=== PATIENT | female | born 1990 | race Caucasian/White ===

== ENCOUNTER 2017-08-10 03:56 | Inpatient (IN) | payer BC ==
[2017-08-10] MEDS ORDERED: Sodium Chloride 0.9% 10 ML Syringe FLUSH PRN (05:30)
[2017-08-10] MEDS ORDERED: Oxytocin/Lactated Ringers 10 UNIT/1,000 ML BAG IV SCH ×2 (05:30)
[2017-08-10] MEDS ORDERED: Nalbuphine 20 MG/1 ML Amp IVPUSH PRN (05:30)
[2017-08-10] MEDS ORDERED: Ondansetron 4 MG/2 ML SDV IVPUSH PRN ×2 (05:30→09:24)
--- NOTE | 2017-08-10 05:34 | PCM.LDHP ---
L&D History of Present Illness - General Date of Service: 08/10/17 Admit Problem/Dx: Patient Status Order with Admit Dx/Problem 08/10/17 05:31 Patient Status [ADT] Routine Admission Diagnosis/Problem Admission Diagnosis/Problem Elective induction of labor planned Source of Information: Patient History Limitations: Reports: No Limitations - History of Present Illness Introduction:: Patient is a 27 y/o at 40 4/7 wks who presents for IOL for dates. Doing well. Has had some slight tightening of her abdomen, but no overt contractions. 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: : 1 Para: 0 LMP (Approximate): - Past Surgical History HEENT Surgical History: Reports: Oral Surgery GI Surgical History: Reports: Bariatric Procedure Female Surgical History: Reports: D&C Musculoskeletal Surgical History: Reports: Other (See Below) (Plantar fascia release) Social & Family History - Tobacco Use Smoking Status *Q: Former Smoker Years of Tobacco use: 12 - Alcohol Use Alcohol Use History: No Days Per Week of Alcohol Use: 1 Number of Drinks Per Day: 1 Total Drinks Per Week: 1 - Recreational Drug Use Recreational Drug Use: No Drug Use in Last 12 Months: No H&P Review of Systems - Review of Systems: Review Of Systems: See Below General: Reports: No Symptoms Pulmonary: Reports: No Symptoms Cardiovascular: Reports: No Symptoms Gastrointestinal: Reports: No Symptoms Genitourinary: Reports: No Symptoms Musculoskeletal: Reports: No Symptoms L&D Exam - Exam Exam: See Below - OB Specific Contraction Intensity: Irritability Movement: Active Heart Tones: Present Heart Tones per Min: 140 Heart Rate (FHR) Variability: Moderate (6-25 bmp) Presentation: Vertex - Oseguera Score Oseguera Score Cervix Position: Posterior Oseguera Score Consistency: Soft Oseguera Score Effacement: >80% Oseguera Score Dilation: 1-2 cm Oseguera Score Infant's Station: -1 ,0 Oseguera Score Total: 8 - Exam General: Alert, Oriented, Cooperative Lungs: Clear to Auscultation, Normal Respiratory Effort Cardiovascular: Regular Rate, Regular Rhythm GI/Abdominal Exam: Soft, Non-Tender Genitourinary: Normal external exam Back Exam: Normal Inspection Extremities: Normal Inspection - Patient Data Result Diagrams: 08/10/17 06:35 - Problem List (1) 40 weeks gestation of SNOMED Code(s): 95384213 ICD Code: Z3A.40 - 40 WEEKS GESTATION OF Status: Acute Current Visit: Yes (2) Elective induction of labor planned SNOMED Code(s): 317181759 ICD Code: [id number] - Status: Acute Current Visit: Yes Problem List Initiated/Reviewed/Updated: Yes Orders Last 24hrs: Active Orders 24 hr Category Date Time Status Patient Status [ADT] Routine ADT 08/10/17 05:31 Ordered Communication Order [RC] ASDIRECTED Care 08/10/17 05:30 Ordered Communication Order [RC] ASDIRECTED Care 08/10/17 05:30 Ordered Communication Order [RC] ASDIRECTED Care 08/10/17 05:30 Ordered Heart Tones [RC] ASDIRECTED Care 08/10/17 05:31 Ordered Notify Provider [RC] ASDIRECTED Care 08/10/17 05:30 Ordered Notify Provider [RC] PRN Care 08/10/17 05:30 Ordered Peripheral IV Care [RC] . DIRECTED Care 08/10/17 05:31 Ordered Up ad Nitza [RC] ASDIRECTED Care 08/10/17 05:31 Ordered Vaginal Exam [RC] ASDIRECTED Care 08/10/17 05:30 Ordered Vital Signs [RC] ASDIRECTED Care 08/10/17 05:30 Ordered Regular Diet [DIET] Diet 08/10/17 Breakfast Ordered CBC W/O DIFF,HEMOGRAM [HEME] Routine Lab 08/10/17 05:30 Ordered TYPE AND SCREEN [BBK] Routine Lab 08/10/17 05:30 Ordered Lactated Ringers [Ringers, Lactated] 1,000 ml Med 08/10/17 05:30 Ordered IV ASDIRECTED Nalbuphine [Nubain] Med 08/10/17 05:30 Ordered 10 mg IVPUSH Q2H PRN Ondansetron [Zofran] Med 08/10/17 05:30 Ordered 4 mg IVPUSH Q4H PRN Oxytocin/Lactated Ringers [Pitocin in LR 10 Units/1,000 Med 08/10/17 05:30 Ordered ML] 10 unit in 1,000 ml IV .CONTINUOUS Oxytocin/Lactated Ringers [Pitocin in LR 10 Units/1,000 Med 08/10/17 05:30 Ordered ML] 10 unit in 1,000 ml IV TITRATE Sodium Chloride 0.9% [Saline Flush] Med 08/10/17 05:30 Ordered 10 ml FLUSH ASDIRECTED PRN Electronic Heart Tones Ext w TOCO [WOMSER] Ot 08/10/17 05:30 Ordered Routine Electronic Heart Tones Internal [WOMSER] Per Unit Ot 08/10/17 05:30 Ordered Routine Peripheral IV Insertion Adult [OM.PC] Routine Ot 08/10/17 05:30 Ordered Assessment/Plan Comment:: 27 y/o at 40 4/7 wks gestation who presents for IOL for dates * CBC and T&S * GBS negative, no need for antibiotics * Thompson bulb placed on admission. Will also start pitocin. AROM when able * Pain management per patient preference * Anticipate
[2017-08-10] MEDS ORDERED: Lactated Ringers 1,000 ML ONE (05:36)
[2017-08-10] MEDS: Lactated Ringers 1,000 ML IV SCH ×3 (06:35→09:53)
[2017-08-10] MEDS ORDERED: fentaNYL 100 MCG/2 ML SDV EPIDUR PRN (09:24)
[2017-08-10] MEDS ORDERED: ePHEDrine 50 MG/ML SDV IVPUSH PRN (09:24)
[2017-08-10] MEDS ORDERED: diphenhydrAMINE 50 MG/ML SDV IVPUSH PRN (09:24)
--- NOTE | 2017-08-10 09:24 | PCM.PREANE ---
Preanesthetic Assessment - Anesthesia/Transfusion/Family Hx Anesthesia History: Prior Anesthesia Without Reaction Family History of Anesthesia Reaction: No Transfusion History: No Prior Transfusion(s) - Review of Systems General: No Symptoms Pulmonary: No Symptoms Cardiovascular: No Symptoms Gastrointestinal: No Symptoms Neurological: No Symptoms Other: Reports: None - Physical Assessment Pulse: 82 Respiratory Rate: 16 Blood Pressure: 131/96 Vital Signs: Last Vital Signs Temp 36.4 C 08/10/17 05:30 Pulse 82 08/10/17 08:01 Resp 16 08/10/17 05:30 BP 123/84 08/10/17 05:30 Pulse Ox Height: 1.6 m Weight: 84.368 kg ASA Class: 2 Mental Status: Alert & Oriented x3 Airway Class: Mallampati = 2 Dentition: Reports: Normal Dentition Thyro-Mental Finger Breadths: 3 Mouth Opening Finger Breadths: 2 ROM/Head Extension: Full Lungs: Clear to Auscultation, Normal Respiratory Effort Cardiovascular: Regular Rate, Regular Rhythm - Lab Values: Laboratory Last Values WBC 7.93 K/mm3 (3.98-10.04) 08/10/17 06:35 RBC 4.02 M/mm3 (3.98-5.22) 08/10/17 06:35 Hgb 11.8 gm/L (11.2-15.7) 08/10/17 06:35 Hct 36.3 % (34.1-44.9) 08/10/17 06:35 MCV 90.3 fl (79.4-94.8) 08/10/17 06:35 MCH 29.4 pg (25.6-32.2) 08/10/17 06:35 MCHC 32.5 g/dl (32.2-35.5) 08/10/17 06:35 RDW Std Deviation 39.3 fL (36.4-46.3) 08/10/17 06:35 Plt Count 247 K/mm3 (182-369) 08/10/17 06:35 MPV 9.1 fl (9.4-12.3) L 08/10/17 06:35 Blood Type B POSITIVE 08/10/17 06:35 Gel Antibody Screen Negative 08/10/17 06:35 - Allergies Allergies/Adverse Reactions: Allergies Allergy/AdvReac Type Severity Reaction Status Date / Time No Known Allergies Allergy Verified 08/10/17 07:10 - Acknowledgements Anesthesia Type Planned: Epidural Pt an Appropriate Candidate for the Planned Anesthesia: Yes Alternatives and Risks of Anesthesia Discussed w Pt/Guardian: Yes Pt/Guardian Understands and Agrees with Anesthesia Plan: Yes PreAnesthesia Questionnaire - Past Health History Medical/Surgical History: Denies 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: - Past Surgical History HEENT Surgical History: Reports: Oral Surgery GI Surgical History: Reports: Bariatric Procedure Other GI Surgeries/Procedures: Gastric Bypass in 2015 Female Surgical History: Reports: D&C Musculoskeletal Surgical History: Reports: Other (See Below) (Plantar fascia release) - SUBSTANCE USE Smoking Status *Q: Former Smoker Days Per Week of Alcohol Use: 1 Number of Drinks Per Day: 1 Total Drinks Per Week: 1 Recreational Drug Use History: No - HOME MEDS Home Medications: Home Meds Vits #93/Iron Fum/FA [ Formula Tablet] 1 each PO DAILY [History] - CURRENT (IN HOUSE) MEDS Current Meds: Current Medications Lactated Ringer's (Ringers, Lactated) 1,000 mls @ 40 mls/hr IV ASDIRECTED EDILSON Last Admin: 08/10/17 08:25 Dose: 40 mls/hr Oxytocin/Lactated Ringer's (Pitocin In Lr 10 Units/1,000 Ml) 10 unit in 1,000 mls @ 12 mls/hr IV TITRATE EDILSON; 2 MUNITS/MIN PRN Reason: Protocol Last Titration: 08/10/17 07:15 Dose: 4 munits/min, 24 mls/hr Oxytocin/Lactated Ringer's (Pitocin In Lr 10 Units/1,000 Ml) 10 unit in 1,000 mls @ 500 mls/hr IV .CONTINUOUS EDILSON Nalbuphine HCl (Nubain) 10 mg IVPUSH Q2H PRN PRN Reason: Pain (moderate 4-6) Ondansetron HCl (Zofran) 4 mg IVPUSH Q4H PRN PRN Reason: Nausea/Vomiting Sodium Chloride (Saline Flush) 10 ml FLUSH ASDIRECTED PRN PRN Reason: Keep Vein Open Discontinued Medications Lactated Ringer's (Ringers, Lactated) Confirm Administered Dose 1,000 mls @ as directed .ROUTE .STK-MED ONE Stop: 08/10/17 05:37
[2017-08-10] MEDS ORDERED: Bupivacaine/fentaNYL/NS 100 ML Bag EPIDUR SCH (09:30)
--- NOTE | 2017-08-10 10:40 | PCM.PNLD ---
Labor Progress Note - VS & Meds Vital Signs: Last Vital Signs Temp 36.4 C 08/10/17 05:30 Pulse 82 08/10/17 09:23 Resp 16 08/10/17 09:23 BP 131/96 H 08/10/17 09:23 Pulse Ox Active Medications: Current Medications Diphenhydramine HCl (Benadryl) 25 mg IVPUSH Q6H PRN PRN Reason: Pruritis Ephedrine Sulfate (Ephedrine Sulfate) 5 mg IVPUSH ASDIRECTED PRN PRN Reason: Hypotension Fentanyl (Sublimaze) 100 mcg EPIDUR ONETIME PRN PRN Reason: Pain Last Admin: 08/10/17 09:46 Dose: 100 mcg Fentanyl/Bupivacaine HCl (Fentanyl/Bupivacaine/Ns 2 Mcg-0.125% 100 Ml) 100 ml EPIDUR ASDIRECTED EDILSON Last Admin: 08/10/17 09:46 Dose: 100 ml Lactated Ringer's (Ringers, Lactated) 1,000 mls @ 40 mls/hr IV ASDIRECTED EDILSON Last Admin: 08/10/17 09:53 Dose: 999 mls/hr Oxytocin/Lactated Ringer's (Pitocin In Lr 10 Units/1,000 Ml) 10 unit in 1,000 mls @ 12 mls/hr IV TITRATE EDILSON; 2 MUNITS/MIN PRN Reason: Protocol Last Titration: 08/10/17 10:17 Dose: 6 munits/min, 36 mls/hr Oxytocin/Lactated Ringer's (Pitocin In Lr 10 Units/1,000 Ml) 10 unit in 1,000 mls @ 500 mls/hr IV .CONTINUOUS EDILSON Nalbuphine HCl (Nubain) 10 mg IVPUSH Q2H PRN PRN Reason: Pain (moderate 4-6) Ondansetron HCl (Zofran) 4 mg IVPUSH Q4H PRN PRN Reason: Nausea/Vomiting Ondansetron HCl (Zofran) 4 mg IVPUSH ONETIME PRN PRN Reason: Nausea/Vomiting Sodium Chloride (Saline Flush) 10 ml FLUSH ASDIRECTED PRN PRN Reason: Keep Vein Open Discontinued Medications Lactated Ringer's (Ringers, Lactated) Confirm Administered Dose 1,000 mls @ as directed .ROUTE .STK-MED ONE Stop: 08/10/17 05:37 Last Admin: 08/10/17 10:31 Dose: Not Given - Uterine Contractions Uterine Monitoring Mode: External [place] Contraction Intensity: Moderate - Monitoring Monitor Mode: External Ultrasound Heart Rate (FHR) Baseline: 145 Heart Rate (FHR) Variability: Moderate (6-25 bmp) Accelerations: Present, 15x15 Decelerations: Variable Strip Review: Category II - Vaginal Exam Dilation (cm): 3-4 Effacement (Percent): 80 Station: -1 Cervical Position: Midposition - Labor Progress (Free Text) Labor Progress: Patient doing well. Thompson bulb out with this check. With SVE ROM seems to have occurred with scant amount of fluid returning. Pitocin at 6. Continue per protocol. Epidural in place.
--- NOTE | 2017-08-10 14:19 | PCM.PNLD ---
Labor Progress Note - VS & Meds Vital Signs: Last Vital Signs Temp 36.4 C 08/10/17 05:30 Pulse 82 08/10/17 09:23 Resp 16 08/10/17 09:23 BP 131/96 H 08/10/17 09:23 Pulse Ox Active Medications: Current Medications Diphenhydramine HCl (Benadryl) 25 mg IVPUSH Q6H PRN PRN Reason: Pruritis Ephedrine Sulfate (Ephedrine Sulfate) 5 mg IVPUSH ASDIRECTED PRN PRN Reason: Hypotension Fentanyl (Sublimaze) 100 mcg EPIDUR ONETIME PRN PRN Reason: Pain Last Admin: 08/10/17 09:46 Dose: 100 mcg Fentanyl/Bupivacaine HCl (Fentanyl/Bupivacaine/Ns 2 Mcg-0.125% 100 Ml) 100 ml EPIDUR ASDIRECTED EDILSON Last Admin: 08/10/17 09:46 Dose: 100 ml Lactated Ringer's (Ringers, Lactated) 1,000 mls @ 40 mls/hr IV ASDIRECTED EDILSON Last Admin: 08/10/17 09:53 Dose: 999 mls/hr Oxytocin/Lactated Ringer's (Pitocin In Lr 10 Units/1,000 Ml) 10 unit in 1,000 mls @ 12 mls/hr IV TITRATE EDILSON; 2 MUNITS/MIN PRN Reason: Protocol Last Titration: 08/10/17 12:49 Dose: 10 munits/min, 60 mls/hr Oxytocin/Lactated Ringer's (Pitocin In Lr 10 Units/1,000 Ml) 10 unit in 1,000 mls @ 500 mls/hr IV .CONTINUOUS EDILSON Nalbuphine HCl (Nubain) 10 mg IVPUSH Q2H PRN PRN Reason: Pain (moderate 4-6) Ondansetron HCl (Zofran) 4 mg IVPUSH Q4H PRN PRN Reason: Nausea/Vomiting Ondansetron HCl (Zofran) 4 mg IVPUSH ONETIME PRN PRN Reason: Nausea/Vomiting Sodium Chloride (Saline Flush) 10 ml FLUSH ASDIRECTED PRN PRN Reason: Keep Vein Open Discontinued Medications Lactated Ringer's (Ringers, Lactated) Confirm Administered Dose 1,000 mls @ as directed .ROUTE .STK-MED ONE Stop: 08/10/17 05:37 Last Admin: 08/10/17 10:31 Dose: Not Given - Uterine Contractions Uterine Monitoring Mode: External [place] Contraction Intensity: Moderate - Monitoring Monitor Mode: External Ultrasound Heart Rate (FHR) Baseline: 130 Heart Rate (FHR) Variability: Moderate (6-25 bmp) Accelerations: Present, 15x15 Decelerations: Early, Variable Strip Review: Category II - Vaginal Exam Dilation (cm): 9 Effacement (Percent): 90 Station: 1 Cervical Position: Anterior - Labor Progress (Free Text) Labor Progress: Patient doing well. Comfortable with epidural. Pitocin at 10. Will continue present management. Somewhat difficult to grape picker contractions, but as patient 9 cm will defer IUPC. Can decrease pitocin if needed. Recheck in ~1 hour
--- NOTE | 2017-08-10 15:30 | PCM.DEL ---
L & D Note - General Info Date of Service: 08/10/17 - Delivery Note Labor: Induced by Oxytocin Cervical Ripening Method: Balloon Device Delivery Outcome: Livebirth Infant Delivery Method: Spontaneous Vaginal Delivery-Single Infant Delivery Mode: Spontaneous Presentation: Left Occiput Anterior (JONATHAN) Nuchal Cord: None Anesthesia Type: Epidural Amniotic Fluid Description: Clear Episiotomy Type: None Laceration: 1st Degree, Vaginal Suture type: Vicryl Suture size: 2-0 Placenta: Intact, Spontaneous Cord: 3 Vessels Estimated Blood Loss: 300 Resuscitation Needed: No [place]: Bulb Syringe, Stimulated, Warmed, [place] Used Delivery Comments (Free Text/Narrative):: Patient found to be complete and began pushing. With maternal pushing effort head delivered from an JONATHAN presentation. No nuchal cord present. With gentle downward traction the shoulder and body delivered. placed on maternal abdomen. Cord clamped and cut. Cord blood obtained. Placenta allowed time to separate and then expelled. Inspection of the perineum showed a 1st degree laceration which was repaired with a running 2-0 vicryl. - Patient Data Vitals - Most Recent: Last Vital Signs Temp 36.4 C 08/10/17 05:30 Pulse 82 08/10/17 09:23 Resp 16 08/10/17 09:23 BP 131/96 H 08/10/17 09:23 Pulse Ox Weight - Most Recent: 84.368 kg I&O - Last 24 Hours: Intake & Output 08/10/17 08/10/17 08/10/17 06:59 14:59 22:59 Intake Total 120 0 Balance 120 0 Lab Results Last 24 Hours: Laboratory Results - last 24 hr 08/10/17 08/10/17 Range/Units 06:35 06:35 WBC 7.93 (3.98-10.04) K/mm3 RBC 4.02 (3.98-5.22) M/mm3 Hgb 11.8 (11.2-15.7) gm/L Hct 36.3 (34.1-44.9) % MCV 90.3 (79.4-94.8) fl MCH 29.4 (25.6-32.2) pg MCHC 32.5 (32.2-35.5) g/dl RDW Std Deviation 39.3 (36.4-46.3) fL Plt Count 247 (182-369) K/mm3 MPV 9.1 L (9.4-12.3) fl Blood Type B POSITIVE Gel Antibody Screen Negative Med Orders - Current: Current Medications Diphenhydramine HCl (Benadryl) 25 mg IVPUSH Q6H PRN PRN Reason: Pruritis Ephedrine Sulfate (Ephedrine Sulfate) 5 mg IVPUSH ASDIRECTED PRN PRN Reason: Hypotension Fentanyl (Sublimaze) 100 mcg EPIDUR ONETIME PRN PRN Reason: Pain Last Admin: 08/10/17 09:46 Dose: 100 mcg Fentanyl/Bupivacaine HCl (Fentanyl/Bupivacaine/Ns 2 Mcg-0.125% 100 Ml) 100 ml EPIDUR ASDIRECTED EDILSON Last Admin: 08/10/17 09:46 Dose: 100 ml Lactated Ringer's (Ringers, Lactated) 1,000 mls @ 40 mls/hr IV ASDIRECTED EDILSON Last Admin: 08/10/17 09:53 Dose: 999 mls/hr Oxytocin/Lactated Ringer's (Pitocin In Lr 10 Units/1,000 Ml) 10 unit in 1,000 mls @ 12 mls/hr IV TITRATE EDILSON; 2 MUNITS/MIN PRN Reason: Protocol Last Titration: 08/10/17 12:49 Dose: 10 munits/min, 60 mls/hr Oxytocin/Lactated Ringer's (Pitocin In Lr 10 Units/1,000 Ml) 10 unit in 1,000 mls @ 500 mls/hr IV .CONTINUOUS EDILSON Nalbuphine HCl (Nubain) 10 mg IVPUSH Q2H PRN PRN Reason: Pain (moderate 4-6) Ondansetron HCl (Zofran) 4 mg IVPUSH Q4H PRN PRN Reason: Nausea/Vomiting Ondansetron HCl (Zofran) 4 mg IVPUSH ONETIME PRN PRN Reason: Nausea/Vomiting Sodium Chloride (Saline Flush) 10 ml FLUSH ASDIRECTED PRN PRN Reason: Keep Vein Open Discontinued Medications Lactated Ringer's (Ringers, Lactated) Confirm Administered Dose 1,000 mls @ as directed .ROUTE .STK-MED ONE Stop: 08/10/17 05:37 Last Admin: 08/10/17 10:31 Dose: Not Given - Problem List & Annotations (1) 40 weeks gestation of SNOMED Code(s): 77017515 Code(s): Z3A.40 - 40 WEEKS GESTATION OF Status: Acute Current Visit: Yes (2) Elective induction of labor planned SNOMED Code(s): 557833210 Code(s): QWQ5027 - Status: Acute Current Visit: Yes (3) Vaginal delivery SNOMED Code(s): 221643967 Code(s): O80 - ENCOUNTER FOR FULL-TERM UNCOMPLICATED DELIVERY Status: Acute Current Visit: Yes - Problem List Review Problem List Initiated/Reviewed/Updated: Yes - My Orders Last 24 Hours: My Active Orders 08/10/17 05:30 Communication Order [RC] ASDIRECTED Communication Order [RC] ASDIRECTED Communication Order [RC] ASDIRECTED Notify Provider [RC] ASDIRECTED Notify Provider [RC] PRN Vital Signs [RC] ASDIRECTED Lactated Ringers [Ringers, Lactated] 1,000 ml IV ASDIRECTED Nalbuphine [Nubain] 10 mg IVPUSH Q2H PRN Ondansetron [Zofran] 4 mg IVPUSH Q4H PRN Oxytocin/Lactated Ringers [Pitocin in LR 10 Units/1,000 ML] 10 unit in 1,000 ml IV .CONTINUOUS Oxytocin/Lactated Ringers [Pitocin in LR 10 Units/1,000 ML] 10 unit in 1,000 ml IV TITRATE Sodium Chloride 0.9% [Saline Flush] 10 ml FLUSH ASDIRECTED PRN Electronic Heart Tones Ext w TOCO [WOMSER] Routine Electronic Heart Tones Internal [WOMSER] Per Unit Routine Peripheral IV Insertion Adult [OM.PC] Routine 08/10/17 05:31 Patient Status [ADT] Routine Peripheral IV Care [RC] . DIRECTED Up ad Nitza [RC] ASDIRECTED 08/10/17 Breakfast Regular Diet [DIET] - Assessment Assessment:: 27 y/o G1 now P1001 PPD#0 from at 40 4/7 wks - Plan Plan:: * Routine cares * Encourage breast feeding * Discharge home in 2 days
[2017-08-10] MEDS ORDERED: Docusate Sodium 100 MG Cap PO PRN (16:27)
[2017-08-10] MEDS ORDERED: Ibuprofen 600 MG Tab PO PRN (16:27)
[2017-08-10] MEDS ORDERED: Lanolin 100% Cream 7 GM Tube TOP PRN (16:27)
[2017-08-10] MEDS: Benzocaine/Menthol 20%-0.5% Spray 56 GM Canister TOP PRN (17:04)
[2017-08-10] MEDS: Witch Hazel Medicated Pads 100/Jar TOP PRN (17:04)
[2017-08-11] MEDS: Acetaminophen 325 MG Tab PO PRN ×3 (02:09→14:30)
--- NOTE | 2017-08-11 09:41 | PCM.DCSUM1 ---
Discharge Summary - Hospital Course Free Text/Narrative:: Chloe is a 1 now para 1001 white female who was electively induced at 40+ weeks gestational age on 08/10/2017. She underwent induction with balloon dilation and rupture membranes. She delivered on the afternoon of 2016. On day one patient is doing well. She is nursing without problems, has minimal lochia and is voiding well. She is desiring discharge home. - Discharge Data Discharge Date: 08/11/17 Discharge Disposition: Home, Self-Care 01 Condition: Good - Patient Instructions Diet: Regular Diet as Tolerated (Nursing diet was increased calories and calcium as directed) Activity: As Tolerated (No intercourse or tampons until bleeding resolves) Driving: May Drive Today Showering/Bathing: May Shower (may take a bath) Notify Provider of: Fever, Increased Pain, Swelling and Redness, Nausea and/or Vomiting - Discharge Plan Home Medications: Home Meds Vits #93/Iron Fum/FA [ Formula Tablet] 1 each PO DAILY [History] Ibuprofen [IJD: Ibuprofen] 600 mg PO Q4H PRN tablet 08/11/17 [Rx] Referrals: Lennie Cameron MD [Primary Care Provider] - (Return to clinic[facility]. [facility] weeks) - Discharge Summary/Plan Comment DC Time >30 min.: No Discharge Summary/Plan Comment: Discharge instructions: 1. Discharge home 2. Diet, activity and follow-up discussed with patient. Recommend nursing diet with increased calories and calcium. 3. Precautions given concern increased pain, bleeding, temperature, signs/ symptoms of DVT/PE. 4. Medications per home medication was printed, discussed with and given to the patient. 5. Return to clinic-Dr. Dr. Cameron at [facility] in 6 weeks. Diagnosis: Term -delivered Condition: Good - Patient Data Vitals - Most Recent: Last Vital Signs Temp 36.4 C 08/11/17 04:09 Pulse 90 08/11/17 04:09 Resp 14 08/11/17 04:09 BP 119/79 08/11/17 04:09 Pulse Ox 98 08/11/17 04:09 Weight - Most Recent: 84.368 kg I&O - Last 24 hours: Intake & Output 08/10/17 08/11/17 08/11/17 22:59 06:59 14:59 Intake Total 4000 Balance 4000 Med Orders - Current: Current Medications Acetaminophen (Tylenol) 650 mg PO Q4H PRN PRN Reason: mild pain or fever Last Admin: 08/11/17 08:51 Dose: 650 mg Benzocaine/Menthol (Dermoplast Pain Relief [place]) 0 gm TOP ASDIRECTED PRN PRN Reason: Perineal Comfort Measure Last Admin: 08/10/17 17:04 Dose: 1 can Docusate Sodium (Colace) 100 mg PO BID PRN PRN Reason: Constipation Emollient Ointment (Lansinoh Hpa) 0 gm TOP ASDIRECTED PRN PRN Reason: Sore Nipples Ibuprofen (Motrin) 600 mg PO Q4H PRN PRN Reason: Mild pain or fever Witch Melonie (Tucks) 1 pad TOP ASDIRECTED PRN PRN Reason: Hemorrhoid pain Last Admin: 08/10/17 17:04 Dose: 1 jar Discontinued Medications Diphenhydramine HCl (Benadryl) 25 mg IVPUSH Q6H PRN PRN Reason: Pruritis Ephedrine Sulfate (Ephedrine Sulfate) 5 mg IVPUSH ASDIRECTED PRN PRN Reason: Hypotension Fentanyl (Sublimaze) 100 mcg EPIDUR ONETIME PRN PRN Reason: Pain Last Admin: 08/10/17 09:46 Dose: 100 mcg Fentanyl/Bupivacaine HCl (Fentanyl/Bupivacaine/Ns 2 Mcg-0.125% 100 Ml) 100 ml EPIDUR ASDIRECTED EDILSON Last Admin: 08/10/17 09:46 Dose: 100 ml Lactated Ringer's (Ringers, Lactated) 1,000 mls @ 40 mls/hr IV ASDIRECTED EDILSON Last Admin: 08/10/17 09:53 Dose: 999 mls/hr Oxytocin/Lactated Ringer's (Pitocin In Lr 10 Units/1,000 Ml) 10 unit in 1,000 mls @ 12 mls/hr IV TITRATE EDILSON; 2 MUNITS/MIN PRN Reason: Protocol Last Titration: 08/10/17 12:49 Dose: 10 munits/min, 60 mls/hr Oxytocin/Lactated Ringer's (Pitocin In Lr 10 Units/1,000 Ml) 10 unit in 1,000 mls @ 500 mls/hr IV .CONTINUOUS EDILSON Lactated Ringer's (Ringers, Lactated) Confirm Administered Dose 1,000 mls @ as directed .ROUTE .STK-MED ONE Stop: 08/10/17 05:37 Last Admin: 08/10/17 10:31 Dose: Not Given Nalbuphine HCl (Nubain) 10 mg IVPUSH Q2H PRN PRN Reason: Pain (moderate 4-6) Ondansetron HCl (Zofran) 4 mg IVPUSH Q4H PRN PRN Reason: Nausea/Vomiting Ondansetron HCl (Zofran) 4 mg IVPUSH ONETIME PRN PRN Reason: Nausea/Vomiting Sodium Chloride (Saline Flush) 10 ml FLUSH ASDIRECTED PRN PRN Reason: Keep Vein Open *Q Meaningful Use (DIS) - VTE *Q VTE Criteria *Q: - Stroke *Q Stroke Criteria *Q: - AMI *Q AMI Criteria *Q:
--- NOTE | 2017-08-11 11:09 | PCM48HPAN ---
Post Anesthesia Note - EVALUATION WITHIN 48HRS OF ANESTHETIC Vital Signs in Normal Range: Yes Patient Participated in Evaluation: Yes Respiratory Function Stable: Yes Airway Patent: Yes Cardiovascular Function Stable: Yes Hydration Status Stable: Yes Pain Control Satisfactory: Yes Nausea and Vomiting Control Satisfactory: Yes Mental Status Recovered: Yes
[2017-08-11 16:00] VITALS: BP 124/83
[2017-08-11] MEDS ORDERED: Measles, Mumps & Rubella Vaccine 0.5 ML SDV SUBCUT ONE (16:13)
[2017-08-11] MEDS: Benzocaine/Menthol 20%-0.5% Spray 56 GM Canister TOP PRN (16:53)
[2017-08-11] MEDS: Witch Hazel Medicated Pads 100/Jar TOP PRN (16:53)
== END 2017-08-11 18:20 | disposition home or self-care (01) | DRG 560 ==
LOC: JD.OB 04:57 → OBSVTOIN 15:07 → JD.OB 15:07
PROVIDERS: ADMIT Obstetrics & Gynecology; ATTEND Obstetrics & Gynecology
PROC: 10E0XZZ Delivery of Products of Conception, External Approach (ICD-10-PCS; principal; 2017-08-10)
PROC: 3E0P3VZ Introduction of Hormone into Female Reproductive, Percutaneous Approach (ICD-10-PCS; 2017-08-10)
PROC: 0HQ9XZZ Repair Perineum Skin, External Approach (ICD-10-PCS; 2017-08-10)
PROC: 00HU33Z Insertion of Infusion Device into Spinal Canal, Percutaneous Approach (ICD-10-PCS; 2017-08-10)
PROC: 3E0R3BZ Introduction of Anesthetic Agent into Spinal Canal, Percutaneous Approach (ICD-10-PCS; 2017-08-10)
PROC: 3E0234Z Introduction of Serum, Toxoid and Vaccine into Muscle, Percutaneous Approach (ICD-10-PCS; 2017-08-11)
DX: O48.0 Post-term pregnancy (principal); Z3A.41 41 weeks gestation of pregnancy; Z37.0 Single live birth; Z87.891 Personal history of nicotine dependence; O71.4 Obstetric high vaginal laceration alone; Z23 Encounter for immunization
CPT/HCPCS: 36415; 51702; 59300; 59409; 85027; 86850; 86900; 86901; 90471; 90707; A9270-GY; J2590; J3010; J7120

== ENCOUNTER 2020-02-06 01:58 | Inpatient (IN) | payer BC, OTHER ==
[~2020-02-06 01:58] MED LIST: Bupivacaine 0.25% 10 ML SDV ONE; ePHEDrine 50 MG/ML SDV ONE
[2020-02-06] MEDS ORDERED: Ondansetron 4 MG/2 ML SDV IVPUSH PRN (02:23)
[2020-02-06] MEDS ORDERED: Sodium Chloride 0.9% 10 ML Syringe FLUSH PRN (02:23)
[2020-02-06] MEDS ORDERED: Nalbuphine 10 MG/ML Syringe IVPUSH PRN (02:23)
[2020-02-06] MEDS ORDERED: Oxytocin/Lactated Ringers 10 UNIT/1,000 ML BAG IV SCH ×2 (02:30→08:15)
[2020-02-06] MEDS: Lactated Ringers 1,000 ML IV SCH ×3 (05:05→07:12)
[2020-02-06] MEDS ORDERED: fentaNYL 100 MCG/2 ML SDV EPIDUR PRN (05:52)
[2020-02-06] MEDS ORDERED: Bupivacaine/fentaNYL/NS 100 ML Bag EPIDUR PRN (05:52)
[2020-02-06] MEDS ORDERED: diphenhydrAMINE 50 MG/ML SDV IVPUSH PRN (05:52)
[2020-02-06] MEDS ORDERED: ePHEDrine 50 MG/ML SDV IVPUSH PRN (05:52)
--- NOTE | 2020-02-06 06:17 | PCM.PREANE ---
Preanesthetic Assessment - Procedure Proposed Procedure: tigist - Anesthesia/Transfusion/Family Hx Anesthesia History: Prior Anesthesia Reaction Family History of Anesthesia Reaction: No Transfusion History: No Prior Transfusion(s) - Review of Systems General: No Symptoms Pulmonary: No Symptoms Cardiovascular: No Symptoms Neurological: No Symptoms Other: Reports: Anxiety - Physical Assessment Vital Signs: Last Vital Signs Temp 97.8 F 02/06/20 02:49 Pulse Resp 14 02/06/20 02:49 BP 143/65 H 02/06/20 02:49 Pulse Ox 100 02/06/20 02:49 Height: 5 ft 3 in Weight: 95.844 kg ASA Class: 2 Mental Status: Alert & Oriented x3 Airway Class: Mallampati = 1 Dentition: Reports: Normal Dentition Thyro-Mental Finger Breadths: 3 Mouth Opening Finger Breadths: 3 ROM/Head Extension: Full Lungs: Clear to Auscultation, Normal Respiratory Effort Cardiovascular: Regular Rate, Regular Rhythm - Lab Values: Laboratory Last Values WBC 8.27 K/mm3 (3.98-10.04) 02/06/20 02:53 RBC 4.01 M/mm3 (3.98-5.22) 02/06/20 02:53 Hgb 10.4 gm/dl (11.2-15.7) L 02/06/20 02:53 Hct 33.7 % (34.1-44.9) L 02/06/20 02:53 MCV 84.0 fl (79.4-94.8) 02/06/20 02:53 MCH 25.9 pg (25.6-32.2) 02/06/20 02:53 MCHC 30.9 g/dl (32.2-35.5) L 02/06/20 02:53 RDW Std Deviation 44.0 fL (36.4-46.3) 02/06/20 02:53 Plt Count 275 K/mm3 (182-369) 02/06/20 02:53 MPV 9.3 fl (9.4-12.3) L 02/06/20 02:53 Neut % (Auto) 71.2 % (34.0-71.1) H 02/06/20 02:53 Lymph % (Auto) 22.0 % (19.3-51.7) 02/06/20 02:53 [place] % (Auto) 6.3 % (4.7-12.5) 02/06/20 02:53 Eos % (Auto) 0.2 (0.7-5.8) L 02/06/20 02:53 Baso % (Auto) 0.1 % (0.1-1.2) 02/06/20 02:53 Neut # (Auto) 5.88 K/mm3 (1.56-6.13) 02/06/20 02:53 Lymph # (Auto) 1.82 K/mm3 (1.18-3.74) 02/06/20 02:53 [place] # (Auto) 0.52 K/mm3 (0.24-0.36) H 02/06/20 02:53 Eos # (Auto) 0.02 K/mm3 (0.04-0.36) L 02/06/20 02:53 Baso # (Auto) 0.01 K/mm3 (0.01-0.08) 02/06/20 02:53 Creatinine 0.7 mg/dL (0.55-1.02) 02/06/20 02:53 Est Cr Clr Drug Dosing 96.33 mL/min 02/06/20 02:53 Estimated GFR (MDRD) > 60 mL/min (>60) 02/06/20 02:53 AST 12 U/L (15-37) L 02/06/20 02:53 ALT 12 U/L (14-59) L 02/06/20 02:53 Ur Random Creatinine 194.8 mg/dL (30.0-125.0) H 02/06/20 03:45 U Random Total Protein 41.2 mg/dL (0.0-11.8) H 02/06/20 03:45 Protein/Creatinin Ratio 211.5 mg/g (0-149) H 02/06/20 03:45 - Allergies Allergies/Adverse Reactions: Allergies Allergy/AdvReac Type Severity Reaction Status Date / Time No Known Allergies Allergy Verified 02/06/20 02:06 - Blood Blood Available: No - Acknowledgements Anesthesia Type Planned: Epidural Pt an Appropriate Candidate for the Planned Anesthesia: Yes Alternatives and Risks of Anesthesia Discussed w Pt/Guardian: Yes Pt/Guardian Understands and Agrees with Anesthesia Plan: Yes PreAnesthesia Questionnaire - Past Health History Medical/Surgical History: Denies Medical/Surgical History HEENT History: Reports: Impaired Vision Other HEENT History: wears glasses Cardiovascular History: Reports: None Respiratory History: Reports: None Gastrointestinal History: Reports: GERD (with preg) 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: , 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 Psychiatric History: Reports: Anxiety Endocrine/Metabolic History: Reports: Obesity/BMI 30+ Oncologic (Cancer) History: Reports: None - Past Surgical History Cardiovascular Surgical History: Reports: Varicose GI Surgical History: Reports: Bariatric Procedure Other GI Surgeries/Procedures: Gastric Bypass in 2015 Female Surgical History: Reports: D&C Musculoskeletal Surgical History: Reports: Other (See Below) (foot) - SUBSTANCE USE Smoking Status *Q: Former Smoker Tobacco Use Within Last Twelve Months: No Second Hand Smoke Exposure: No Days Per Week of Alcohol Use: 0 Recreational Drug Use History: No - HOME MEDS Home Medications: Home Meds Pnv No.95/Ferrous Fum/Folic AC [ Tablet] 1 tab PO DAILY 03/11/19 [ History] Ferrous Sulfate [Iron] 325 mg PO DAILY 02/04/20 [History] - CURRENT (IN HOUSE) MEDS Current Meds: Current Medications Diphenhydramine HCl (Benadryl) 25 mg IVPUSH Q6H PRN PRN Reason: pruritis Ephedrine Sulfate (Ephedrine Sulfate) 5 mg IVPUSH ASDIRECTED PRN PRN Reason: Hypotension Fentanyl (Sublimaze) 100 mcg EPIDUR Q3H PRN PRN Reason: Pain Last Admin: 02/06/20 05:57 Dose: 100 mcg Fentanyl/Bupivacaine HCl (Fentanyl/Bupivacaine/Ns 2 Mcg-0.125% 100 Ml) 100 ml EPIDUR ASDIRECTED PRN PRN Reason: Pain Last Admin: 02/06/20 06:01 Dose: 100 ml Lactated Ringer's (Ringers, Lactated) 1,000 mls @ 100 mls/hr IV ASDIRECTED EDILSON Last Admin: 02/06/20 06:05 Dose: 100 mls/hr Oxytocin/Lactated Ringer's (Pitocin In Lr 10 Units/1,000 Ml) 10 unit in 1,000 mls @ 100 mls/hr IV .CONTINUOUS EDILSON Nalbuphine HCl (Nubain) 10 mg IVPUSH Q2H PRN PRN Reason: Pain Ondansetron HCl (Zofran) 4 mg IVPUSH Q4H PRN PRN Reason: Nausea/Vomiting Sodium Chloride (Saline Flush) 10 ml FLUSH ASDIRECTED PRN PRN Reason: Keep Vein Open
[2020-02-06] MEDS ORDERED: Ondansetron 4 MG/2 ML SDV ONE (06:42)
--- NOTE | 2020-02-06 09:08 | PCM.LDHP ---
L&D History of Present Illness - General Date of Service: 02/06/20 Admit Problem/Dx: Patient Status Order with Admit Dx/Problem 02/06/20 02:07 Patient Status [ADT] Routine Admission Diagnosis/Problem Admission Diagnosis/Problem Source of Information: Patient History Limitations: Reports: No Limitations - History of Present Illness Introduction:: Patient is a 29 y/o at 38 6/7 wks who presents with SROM. Occurred at 0230 or so this AM. Had some contractions which had become more uncomfortable. Now comfortable with epidural in place. 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 : 3 Para: 1 LMP (Approximate): Psychiatric History: Reports: Anxiety Endocrine/Metabolic History: Reports: Obesity/BMI 30+ - Past Surgical History HEENT Surgical History: Reports: Oral Surgery Cardiovascular Surgical History: Reports: Varicose GI Surgical History: Reports: Bariatric Procedure Other GI Surgeries/Procedures: Gastric Bypass in 2014 Female Surgical History: Reports: D&C Musculoskeletal Surgical History: Reports: Other (See Below) (Plantar facia release) Social & Family History - Family History Family Medical History: Noncontributory - Tobacco Use Smoking Status *Q: Former Smoker Used Tobacco, but Quit: Yes Month/Year Tobacco Last Used: 08/2014 Second Hand Smoke Exposure: No - Caffeine Use Caffeine Use: Reports: Coffee, Soda - Alcohol Use Alcohol Use History: No Days Per Week of Alcohol Use: 0 - Recreational Drug Use Recreational Drug Use: No H&P Review of Systems - Review of Systems: Review Of Systems: See Below General: Reports: No Symptoms Pulmonary: Reports: No Symptoms Cardiovascular: Reports: No Symptoms Gastrointestinal: Reports: Abdominal Pain (contractions) Genitourinary: Reports: No Symptoms Musculoskeletal: Reports: No Symptoms Psychiatric: Reports: No Symptoms Neurological: Reports: No Symptoms L&D Exam - Exam Exam: See Below - Vital Signs Vital Signs: Last Vital Signs Temp 36.6 C 02/06/20 02:49 Pulse Resp 14 02/06/20 02:49 BP 143/65 H 02/06/20 02:49 Pulse Ox 100 02/06/20 02:49 Weight: 95.844 kg - OB Specific Contraction Intensity: Moderate Movement: Active Heart Tones: Present Heart Tones per Min: 145 Heart Rate (FHR) Variability: Moderate (6-25 bmp) Presentation: Vertex - Oseguera Score Oseguera Score Cervix Position: Midposition Oseguera Score Consistency: Soft Oseguera Score Effacement: 51-70% Oseguera Score Dilation: 3-4 cm Oseguera Score 's Station: -2 Oseguera Score Total: 8 - Exam General: Alert, Oriented, Cooperative Lungs: Clear to Auscultation, Normal Respiratory Effort Cardiovascular: Regular Rate, Regular Rhythm GI/Abdominal Exam: Soft, Non-Tender Genitourinary: Normal external exam Extremities: Normal Inspection Skin: Warm, Dry, Intact - Patient Data Lab Results Last 24 hrs: Laboratory Results - last 24 hr 02/06/20 02/06/20 02/06/20 Range/Units 02:53 02:53 03:45 WBC 8.27 (3.98-10.04) K/mm3 RBC 4.01 (3.98-5.22) M/mm3 Hgb 10.4 L (11.2-15.7) gm/dl Hct 33.7 L (34.1-44.9) % MCV 84.0 (79.4-94.8) fl MCH 25.9 (25.6-32.2) pg MCHC 30.9 L (32.2-35.5) g/dl RDW Std Deviation 44.0 (36.4-46.3) fL Plt Count 275 (182-369) K/mm3 MPV 9.3 L (9.4-12.3) fl Neut % (Auto) 71.2 H (34.0-71.1) % Lymph % (Auto) 22.0 (19.3-51.7) % [place] % (Auto) 6.3 (4.7-12.5) % Eos % (Auto) 0.2 L (0.7-5.8) Baso % (Auto) 0.1 (0.1-1.2) % Neut # (Auto) 5.88 (1.56-6.13) K/mm3 Lymph # (Auto) 1.82 (1.18-3.74) K/mm3 [place] # (Auto) 0.52 H (0.24-0.36) K/mm3 Eos # (Auto) 0.02 L (0.04-0.36) K/mm3 Baso # (Auto) 0.01 (0.01-0.08) K/mm3 Creatinine 0.7 (0.55-1.02) mg/dL Est Cr Clr Drug Dosing 96.33 mL/min Estimated GFR (MDRD) > 60 (>60) mL/min AST 12 L (15-37) U/L ALT 12 L (14-59) U/L Ur Random Creatinine 194.8 H (30.0-125.0) mg/dL U Random Total Protein 41.2 H (0.0-11.8) mg/dL Protein/Creatinin Ratio 211.5 H (0-149) mg/g Result Diagrams: 02/06/20 02:53 02/06/20 02:53 - Problem List (1) 38 weeks gestation of SNOMED Code(s): 13325221 ICD Code: Z3A.38 - 38 WEEKS GESTATION OF Status: Acute Current Visit: Yes (2) Spontaneous rupture of membranes SNOMED Code(s): 818046962 ICD Code: [id number] - Status: Acute Current Visit: Yes Problem List Initiated/Reviewed/Updated: Yes Orders Last 24hrs: Active Orders 24 hr Category Date Time Status Patient Status [ADT] Routine ADT 02/06/20 02:07 Active Activity as Tolerated [RC] PFP Care 02/06/20 02:24 Active Communication Order [RC] ASDIRECTED Care 02/06/20 02:24 Active Heart Tones [RC] ASDIRECTED Care 02/06/20 02:24 Active Non Stress Test [RC] PER UNIT ROUTINE Care 02/06/20 02:07 Active Notify Provider [RC] ASDIRECTED Care 02/06/20 05:52 Active Notify Provider [RC] PFP Care 02/06/20 02:24 Active Notify Provider [RC] PRN Care 02/06/20 02:24 Active Peripheral IV Care [RC] . DIRECTED Care 02/06/20 02:24 Active Vital Signs [RC] PER UNIT ROUTINE Care 02/06/20 02:24 Active Regular Diet [DIET] Diet 02/06/20 Breakfast Active BLOOD BANK HOLD SPECIMEN [BBK] Stat Lab 02/06/20 02:23 Ordered RAPID PLASMA REAGIN,RPR [CHEM] Routine Lab 02/06/20 02:24 Ordered Bupivacaine/fentaNYL/NS [fentaNYL/Bupivacaine/NS 2 MCG- Med 02/06/20 05:52 Active 0.125% 100 ML] 100 ml EPIDUR ASDIRECTED PRN Lactated Ringers [Ringers, Lactated] 1,000 ml Med 02/06/20 02:30 Active IV ASDIRECTED Nalbuphine [Nubain] Med 02/06/20 02:23 Active 10 mg IVPUSH Q2H PRN Ondansetron [Zofran] Med 02/06/20 02:23 Active 4 mg IVPUSH Q4H PRN Oxytocin/Lactated Ringers [Pitocin in LR 10 Units/1,000 Med 02/06/20 02:30 Active ML] 10 unit in 1,000 ml IV .CONTINUOUS Oxytocin/Lactated Ringers [Pitocin in LR 10 Units/1,000 Med 02/06/20 08:15 Active ML] 10 unit in 1,000 ml IV TITRATE Sodium Chloride 0.9% [Saline Flush] Med 02/06/20 02:23 Active 10 ml FLUSH ASDIRECTED PRN diphenhydrAMINE [Benadryl] Med 02/06/20 05:52 Active 25 mg IVPUSH Q6H PRN ePHEDrine [ePHEDrine sulfate] Med 02/06/20 05:52 Active 5 mg IVPUSH ASDIRECTED PRN fentaNYL [Sublimaze] Med 02/06/20 05:52 Active 100 mcg EPIDUR Q3H PRN Electronic Heart Tones Ext w TOCO [WOMSER] Oth 02/06/20 02:24 Ordered Routine Electronic Heart Tones Internal [WOMSER] Per Unit Oth 02/06/20 02:24 Ordered Routine Peripheral IV Insertion Adult [OM.PC] Routine Oth 02/06/20 02:24 Ordered Resuscitation Status Routine Resus Stat 02/06/20 02:07 Ordered Medication Orders Diphenhydramine HCl (Benadryl) 25 mg IVPUSH Q6H PRN PRN Reason: pruritis Ephedrine Sulfate (Ephedrine Sulfate) 5 mg IVPUSH ASDIRECTED PRN PRN Reason: Hypotension Fentanyl (Sublimaze) 100 mcg EPIDUR Q3H PRN PRN Reason: Pain Last Admin: 02/06/20 05:57 Dose: 100 mcg Fentanyl/Bupivacaine HCl (Fentanyl/Bupivacaine/Ns 2 Mcg-0.125% 100 Ml) 100 ml EPIDUR ASDIRECTED PRN PRN Reason: Pain Last Admin: 02/06/20 06:01 Dose: 100 ml Lactated Ringer's (Ringers, Lactated) 1,000 mls @ 100 mls/hr IV ASDIRECTED EDILSON Last Admin: 02/06/20 07:12 Dose: 100 mls/hr Infusion: 02/06/20 07:12 Dose: 100 mls/hr Admin: 02/06/20 06:05 Dose: 100 mls/hr Infusion: 02/06/20 06:05 Dose: 100 mls/hr Admin: 02/06/20 05:05 Dose: 100 mls/hr Oxytocin/Lactated Ringer's (Pitocin In Lr 10 Units/1,000 Ml) 10 unit in 1,000 mls @ 100 mls/hr IV .CONTINUOUS EDILSON Oxytocin/Lactated Ringer's (Pitocin In Lr 10 Units/1,000 Ml) 10 unit in 1,000 mls @ 12 mls/hr IV TITRATE EDILSON; Protocol Last Titration: 02/06/20 08:52 Dose: 4 munits/min, 24 mls/hr Admin: 02/06/20 08:15 Dose: 2 munits/min, 12 mls/hr Nalbuphine HCl (Nubain) 10 mg IVPUSH Q2H PRN PRN Reason: Pain Ondansetron HCl (Zofran) 4 mg IVPUSH Q4H PRN PRN Reason: Nausea/Vomiting Sodium Chloride (Saline Flush) 10 ml FLUSH ASDIRECTED PRN PRN Reason: Keep Vein Open Assessment/Plan Comment:: * Labs already done including evaluation for elevated blood pressure - normal * Epidural in place * Difficulty to assess contractions with external monitor. Internal monitors placed * Pitocin started for augmentation * GBS negative * Anticipate
--- NOTE | 2020-02-06 12:13 | PCM.DEL ---
L & D Note - General Info Date of Service: 02/06/20 - Delivery Note Labor: Augmented by Oxytocin Delivery Outcome: Livebirth Delivery Method: Spontaneous Vaginal Delivery-Single Delivery Mode: Spontaneous Presentation: Left Occiput Anterior (JONATHAN) Nuchal Cord: Present, Reduced Anesthesia Type: Epidural Amniotic Fluid Description: Clear Episiotomy Type: None Laceration: 1st Degree Placenta: Intact, Spontaneous Cord: 3 Vessels Estimated Blood Loss: 200 Resuscitation Needed: Yes [place]: Bulb Syringe, Stimulated, Warmed, [place] Used, Warmer Used Delivery Comments (Free Text/Narrative):: Patient found to be complete and began pushing. With maternal pushing effort head delivered from an JONATHAN presentation. Nuchal cord present and reduced. With gentle downward traction the shoulders and body delivered. Infant placed on maternal abdomen. Cord clamped and cut. Cord blood obtained. Placenta allowed time to separate and expelled intact. Inspection of the perineum showed a small, 1st degree, laceration which was hemostatic and so not repaired - General Info Date of Service: 02/06/20 - Patient Data Vitals - Most Recent: Last Vital Signs Temp 36.6 C 02/06/20 02:49 Pulse Resp 14 02/06/20 02:49 BP 143/65 H 02/06/20 02:49 Pulse Ox 100 02/06/20 02:49 Weight - Most Recent: 95.844 kg I&O - Last 24 Hours: Intake & Output 02/05/20 02/06/20 02/06/20 22:59 06:59 14:59 Intake Total 1240 Output Total 650 Balance 590 Lab Results Last 24 Hours: Laboratory Results - last 24 hr 02/06/20 02/06/20 02/06/20 Range/Units 02:53 02:53 03:45 WBC 8.27 (3.98-10.04) K/mm3 RBC 4.01 (3.98-5.22) M/mm3 Hgb 10.4 L (11.2-15.7) gm/dl Hct 33.7 L (34.1-44.9) % MCV 84.0 (79.4-94.8) fl MCH 25.9 (25.6-32.2) pg MCHC 30.9 L (32.2-35.5) g/dl RDW Std Deviation 44.0 (36.4-46.3) fL Plt Count 275 (182-369) K/mm3 MPV 9.3 L (9.4-12.3) fl Neut % (Auto) 71.2 H (34.0-71.1) % Lymph % (Auto) 22.0 (19.3-51.7) % [place] % (Auto) 6.3 (4.7-12.5) % Eos % (Auto) 0.2 L (0.7-5.8) Baso % (Auto) 0.1 (0.1-1.2) % Neut # (Auto) 5.88 (1.56-6.13) K/mm3 Lymph # (Auto) 1.82 (1.18-3.74) K/mm3 [place] # (Auto) 0.52 H (0.24-0.36) K/mm3 Eos # (Auto) 0.02 L (0.04-0.36) K/mm3 Baso # (Auto) 0.01 (0.01-0.08) K/mm3 Creatinine 0.7 (0.55-1.02) mg/dL Est Cr Clr Drug Dosing 96.33 mL/min Estimated GFR (MDRD) > 60 (>60) mL/min AST 12 L (15-37) U/L ALT 12 L (14-59) U/L Ur Random Creatinine 194.8 H (30.0-125.0) mg/dL U Random Total Protein 41.2 H (0.0-11.8) mg/dL Protein/Creatinin Ratio 211.5 H (0-149) mg/g Med Orders - Current: Current Medications Diphenhydramine HCl (Benadryl) 25 mg IVPUSH Q6H PRN PRN Reason: pruritis Ephedrine Sulfate (Ephedrine Sulfate) 5 mg IVPUSH ASDIRECTED PRN PRN Reason: Hypotension Fentanyl (Sublimaze) 100 mcg EPIDUR Q3H PRN PRN Reason: Pain Last Admin: 02/06/20 05:57 Dose: 100 mcg Fentanyl/Bupivacaine HCl (Fentanyl/Bupivacaine/Ns 2 Mcg-0.125% 100 Ml) 100 ml EPIDUR ASDIRECTED PRN PRN Reason: Pain Last Admin: 02/06/20 06:01 Dose: 100 ml Lactated Ringer's (Ringers, Lactated) 1,000 mls @ 100 mls/hr IV ASDIRECTED EDILSON Last Admin: 02/06/20 07:12 Dose: 100 mls/hr Oxytocin/Lactated Ringer's (Pitocin In Lr 10 Units/1,000 Ml) 10 unit in 1,000 mls @ 100 mls/hr IV .CONTINUOUS EDILSON Oxytocin/Lactated Ringer's (Pitocin In Lr 10 Units/1,000 Ml) 10 unit in 1,000 mls @ 12 mls/hr IV TITRATE EDILSON; Protocol Last Titration: 02/06/20 11:12 Dose: 12 munits/min, 72 mls/hr Nalbuphine HCl (Nubain) 10 mg IVPUSH Q2H PRN PRN Reason: Pain Ondansetron HCl (Zofran) 4 mg IVPUSH Q4H PRN PRN Reason: Nausea/Vomiting Sodium Chloride (Saline Flush) 10 ml FLUSH ASDIRECTED PRN PRN Reason: Keep Vein Open Discontinued Medications Ondansetron HCl (Zofran) Confirm Administered Dose 4 mg .ROUTE .Social[employer]-MED ONE Stop: 02/06/20 06:43 - Problem List & Annotations (1) 38 weeks gestation of SNOMED Code(s): 12241282 Code(s): Z3A.38 - 38 WEEKS GESTATION OF Status: Acute Current Visit: Yes (2) Spontaneous rupture of membranes SNOMED Code(s): 208859036 Code(s): SYE6830 - Status: Acute Current Visit: Yes (3) Vaginal delivery SNOMED Code(s): 723035023 Code(s): O80 - ENCOUNTER FOR FULL-TERM UNCOMPLICATED DELIVERY Status: Acute Current Visit: No - Problem List Review Problem List Initiated/Reviewed/Updated: Yes - My Orders Last 24 Hours: My Active Orders 02/06/20 02:07 Patient Status [ADT] Routine Non Stress Test [RC] PER UNIT ROUTINE Resuscitation Status Routine 02/06/20 02:23 BLOOD BANK HOLD SPECIMEN [BBK] Stat Nalbuphine [Nubain] 10 mg IVPUSH Q2H PRN Ondansetron [Zofran] 4 mg IVPUSH Q4H PRN Sodium Chloride 0.9% [Saline Flush] 10 ml FLUSH ASDIRECTED PRN 02/06/20 02:24 Activity as Tolerated [RC] PFP Communication Order [RC] ASDIRECTED Heart Tones [RC] ASDIRECTED Notify Provider [RC] PFP Notify Provider [RC] PRN Peripheral IV Care [RC] . DIRECTED Vital Signs [RC] PER UNIT ROUTINE RAPID PLASMA REAGIN,RPR [CHEM] Routine Electronic Heart Tones Ext w TOCO [WOMSER] Routine Electronic Heart Tones Internal [WOMSER] Per Unit Routine Peripheral IV Insertion Adult [OM.PC] Routine 02/06/20 02:30 Lactated Ringers [Ringers, Lactated] 1,000 ml IV ASDIRECTED Oxytocin/Lactated Ringers [Pitocin in LR 10 Units/1,000 ML] 10 unit in 1,000 ml IV .CONTINUOUS 02/06/20 08:15 Oxytocin/Lactated Ringers [Pitocin in LR 10 Units/1,000 ML] 10 unit in 1,000 ml IV TITRATE 02/06/20 Breakfast Regular Diet [DIET] - Assessment Assessment:: PPD#0 - Plan Plan:: * Routine cares * Breast feeding * Discharge home in 1-2 days
[2020-02-06] MEDS ORDERED: Docusate Sodium 100 MG Cap PO PRN (12:45)
[2020-02-06] MEDS ORDERED: Ibuprofen 600 MG Tab PO PRN (12:45)
[2020-02-06] MEDS ORDERED: Witch Hazel Medicated Pads 40/Jar TOP PRN (12:45)
[2020-02-06] MEDS ORDERED: Benzocaine/Menthol 20%-0.5% Spray 56 GM Canister TOP PRN (12:45)
[2020-02-06] MEDS: Acetaminophen 325 MG Tab PO PRN ×3 (15:02→23:05)
[2020-02-07] MEDS: Acetaminophen 325 MG Tab PO PRN ×3 (03:13→12:48)
--- NOTE | 2020-02-07 07:54 | PCM.DCSUM1 ---
Discharge Summary - Hospital Course Free Text/Narrative:: Mily is a 29-year-old female who was admitted early on the a.m. of 2019 with SROM. She progressed in labor. Labor was augmented with Pitocin. She had a galeana, viable, . She had a first-degree laceration which was not repaired as it was hemostatic. Patient is desiring discharge home. Diagnosis: Stroke: No - Discharge Data Discharge Date: 02/07/20 Discharge Disposition: Home, Self-Care 01 Condition: Good - Referral to Home Health Primary Care Physician: Lennie Cameron MD - Patient Instructions Diet: Regular Diet as Tolerated Activity: As Tolerated (No intercourse or tampons until bleeding resolves) Driving: May Drive Today Showering/Bathing: May Shower (Patient may take a bath) Notify Provider of: Fever, Increased Pain, Swelling and Redness, Nausea and/or Vomiting - Discharge Plan Home Medications: Home Meds Pnv No.95/Ferrous Fum/Folic AC [ Tablet] 1 tab PO DAILY 03/11/19 [ History] Ferrous Sulfate [Iron] 325 mg PO DAILY 02/04/20 [History] Acetaminophen [Tylenol] 650 mg PO Q4H PRN tablet 02/07/20 [Rx] Referrals: Lennie Cameron MD [Primary Care Provider] - (Patient is to call clinic for a appointment with Dr. Cameron.) - Discharge Summary/Plan Comment DC Time >30 min.: No Discharge Summary/Plan Comment: Discharge instructions: 1. Discharge home 2. Diet, activity and follow-up discussed with patient. Recommend nursing diet with increased calories and calcium. 3. Precautions given concern increased pain, bleeding, temperature, signs/ symptoms of DVT/PE. 4. Medications per home medication was printed, discussed with and given to the patient. 5. Return to clinic-patient is to call [facility] for a appointment with Dr. Cameron.. Diagnosis: Term -delivered Condition: Good - Patient Data Vitals - Most Recent: Last Vital Signs Temp 36.2 C 02/07/20 03:19 Pulse 85 02/07/20 03:19 Resp 15 02/07/20 03:19 BP 114/56 L 02/07/20 03:19 Pulse Ox 99 02/07/20 03:19 Weight - Most Recent: 95.844 kg Med Orders - Current: Current Medications Acetaminophen (Tylenol) 650 mg PO Q4H PRN PRN Reason: mild pain or fever Last Admin: 02/07/20 07:20 Dose: 650 mg Benzocaine/Menthol (Dermoplast Pain Relief [place]) 0 gm TOP ASDIRECTED PRN PRN Reason: Perineal Comfort Measure Docusate Sodium (Colace) 100 mg PO BID PRN PRN Reason: Constipation Witch Melonie (Tucks) 1 pad TOP ASDIRECTED PRN PRN Reason: Perineal Comfort Measure Discontinued Medications Bupivacaine HCl (Sensorcaine-Mpf 0.25%) 10 ml .ROUTE .STK-MED ONE Stop: 02/06/20 00:01 Diphenhydramine HCl (Benadryl) 25 mg IVPUSH Q6H PRN PRN Reason: pruritis Ephedrine Sulfate (Ephedrine Sulfate) 5 mg IVPUSH ASDIRECTED PRN PRN Reason: Hypotension Ephedrine Sulfate (Ephedrine Sulfate) 150 mg .ROUTE .STK-MED ONE Stop: 02/06/20 00:01 Fentanyl (Sublimaze) 100 mcg EPIDUR Q3H PRN PRN Reason: Pain Last Admin: 02/06/20 05:57 Dose: 100 mcg Fentanyl/Bupivacaine HCl (Fentanyl/Bupivacaine/Ns 2 Mcg-0.125% 100 Ml) 100 ml EPIDUR ASDIRECTED PRN PRN Reason: Pain Last Admin: 02/06/20 06:01 Dose: 100 ml Lactated Ringer's (Ringers, Lactated) 1,000 mls @ 100 mls/hr IV ASDIRECTED EDILSON Last Admin: 02/06/20 07:12 Dose: 100 mls/hr Oxytocin/Lactated Ringer's (Pitocin In Lr 10 Units/1,000 Ml) 10 unit in 1,000 mls @ 100 mls/hr IV .CONTINUOUS EDILSON Oxytocin/Lactated Ringer's (Pitocin In Lr 10 Units/1,000 Ml) 10 unit in 1,000 mls @ 12 mls/hr IV TITRATE EDILSON; Protocol Last Titration: 02/06/20 11:12 Dose: 12 munits/min, 72 mls/hr Ibuprofen (Motrin) 600 mg PO Q6H PRN PRN Reason: Mild pain or fever Nalbuphine HCl (Nubain) 10 mg IVPUSH Q2H PRN PRN Reason: Pain Ondansetron HCl (Zofran) 4 mg IVPUSH Q4H PRN PRN Reason: Nausea/Vomiting Ondansetron HCl (Zofran) Confirm Administered Dose 4 mg .ROUTE .[employer]-MED ONE Stop: 02/06/20 06:43 Last Admin: 02/06/20 21:39 Dose: Not Given Sodium Chloride (Saline Flush) 10 ml FLUSH ASDIRECTED PRN PRN Reason: Keep Vein Open
[2020-02-07 09:26] VITALS: BP 118/71; PULSE 88
--- NOTE | 2020-02-07 16:14 | PCM48HPAN ---
Post Anesthesia Note - EVALUATION WITHIN 48HRS OF ANESTHETIC Vital Signs in Normal Range: Yes Patient Participated in Evaluation: Yes Respiratory Function Stable: Yes Airway Patent: Yes Cardiovascular Function Stable: Yes Hydration Status Stable: Yes Pain Control Satisfactory: Yes Nausea and Vomiting Control Satisfactory: Yes Mental Status Recovered: Yes Vital Signs: Last Vital Signs Temp 36.7 C 02/07/20 09:07 Pulse 88 02/07/20 09:07 Resp 16 02/07/20 09:07 BP 118/71 02/07/20 09:07 Pulse Ox 97 02/07/20 09:07
== END 2020-02-07 14:45 | disposition home or self-care (01) | DRG 560 ==
LOC: JD.OB 01:58 → JD.OBCHECK 01:58 → UNDOADMOB 02:42 → JD.OB 02:42 → OBSVTOIN 11:50 → JD.OB 11:51
PROVIDERS: ADMIT Obstetrics & Gynecology; ATTEND Obstetrics & Gynecology
PROC: 10E0XZZ Delivery of Products of Conception, External Approach (ICD-10-PCS; principal; 2020-02-06)
PROC: 0HQ9XZZ Repair Perineum Skin, External Approach (ICD-10-PCS; 2020-02-06)
PROC: 3E0R3BZ Introduction of Anesthetic Agent into Spinal Canal, Percutaneous Approach (ICD-10-PCS; 2020-02-06)
PROC: 00HU33Z Insertion of Infusion Device into Spinal Canal, Percutaneous Approach (ICD-10-PCS; 2020-02-06)
DX: O99.62 Diseases of the digestive system complicating childbirth (principal); Z37.0 Single live birth; K21.9 Gastro-esophageal reflux disease without esophagitis; O99.214 Obesity complicating childbirth; E66.9 Obesity, unspecified; Z87.891 Personal history of nicotine dependence; O69.81X0 Labor and delivery complicated by cord around neck, without compression, not applicable or unspecified; O70.0 First degree perineal laceration during delivery; Z3A.38 38 weeks gestation of pregnancy
CPT/HCPCS: 01967; 36415; 51702; 59025; 59409; 82565; 82570; 84156; 84450; 84460; 85025; 86592; A9270-GY; J2590; J3010; J3490; J7120